=== PATIENT | female | born 1980 | race Two or more races ===

== ENCOUNTER 2016-03-30 11:10 | Emergency (ER) | payer SELFPAY ==
--- NOTE | 2016-03-30 11:18 | ER Document Report ---
ED Medical Screen (RME) - General Stated Complaint: POSSIBLE DOG BITE Notes: 36 yo female bitten by neighbor's dog. went into yard to get her dog. bitten on left calf. Unsure of tetnus status. Dog's shots are UTD. No chronic health problems - Related Data Allergies/Adverse Reactions: No Known Allergies Allergy (Unverified 08/24/10 07:53) Past Medical History Neurological Medical History: Denies: Hx Seizures Past Surgical History: Reports: Hx Tubal Ligation. Denies: Hx Hysterectomy Physical Exam - Vital signs Vitals: Temp Pulse Resp BP Pulse Ox 98.0 F 75 16 121/71 98 03/30/16 11:13 03/30/16 11:13 03/30/16 11:13 03/30/16 11:13 03/30/16 11:13 Course - Vital Signs Vital signs: Temp Pulse Resp BP Pulse Ox 98.0 F 75 16 121/71 98 03/30/16 11:13 03/30/16 11:13 03/30/16 11:13 03/30/16 11:13 03/30/16 11:13
[2016-03-30] MEDS ORDERED: LIDOCAINE 1% INJ-PF (10 MG/ML) 30 ML SDV INJ ONE (11:29)
[2016-03-30] MEDS ORDERED: DIPH/PERTUSS(ACELL)/TETANUS VAC/PF 0.5 ML SYR (>=10YO) IM ONE (11:47)
--- NOTE | 2016-03-30 12:36 | ER Document Report ---
ED Animal Bite - General Chief Complaint: Dog Bite Stated Complaint: POSSIBLE DOG BITE Notes: Patient was bitten on the lower back part of her left leg by a neighbors dog. That dog is up-to-date on all of its shots. Patient went into the neighbors yard to get her dog who had strayed into that yard. The neighbors dog came out and went after this patient biting her on her lower posterior leg. No other injuries. TRAVEL OUTSIDE OF THE [place] IN LAST 30 DAYS: No - Related Data Allergies/Adverse Reactions: No Known Allergies Allergy (Verified 03/30/16 11:16) Past Medical History - Social History Smoking Status: Current Every Day Smoker Chew tobacco use (# tins/day): No Frequency of alcohol use: None Drug Abuse: None Family History: Reviewed & Not Pertinent Patient has suicidal ideation: No Patient has homicidal ideation: No Past Surgical History: Reports: Hx Tubal Ligation - Immunizations Hx Diphtheria, Pertussis, Tetanus Vaccination: Yes Review of Systems - Review of Systems Constitutional: denies: Fever Cardiovascular: denies: Chest pain Respiratory: denies: Cough, Short of breath, Wheezing Gastrointestinal: denies: Abdominal pain, Diarrhea, Vomiting Physical Exam - Vital signs Vitals: Temp Pulse Resp BP Pulse Ox 98.0 F 75 16 121/71 98 03/30/16 11:13 03/30/16 11:13 03/30/16 11:13 03/30/16 11:13 03/30/16 11:13 Interpretation: Normal - Notes Notes: PHYSICAL EXAMINATION: GENERAL: Well-appearing, in no acute distress. HEAD: Atraumatic, normocephalic. BACK: No tenderness throughout entire back. EXTREMITIES: Patient has several abrasions and 1 rather deep and long laceration about 3 cm in length in the region above the posterior left ankle, overlying the region of the Achilles tendon. She has several linear superficial abrasions rather parallel to this one deep laceration. She has excellent sensation and circulation into the distal left foot and toes. NEUROLOGICAL: Normal speech, normal gait except for a slight limp because of pain. Normal sensory, motor, and reflex exams. Awake, alert, and oriented x3. Cranial nerves normal. SKIN: Warm, dry, no rashes. Course - Vital Signs Vital signs: Temp Pulse Resp BP Pulse Ox 98.5 F 62 14 110/57 L 98 03/30/16 12:51 03/30/16 12:51 03/30/16 12:51 03/30/16 12:51 03/30/16 12:51 Procedures - Laceration/Wound Repair Left Lower Leg Wound length (cm): 3 Wound's Depth, Shape: Into muscle - By digital exploration, it feels as if the dog bite just approaches or slightly enters the surface of the muscle, although I can't visualize that area. It is a very insignificant interruption in the external layer of tissue over the muscle., Linear, Contused tissue. No: Flap, Stellate Laceration pre-procedure: Sterile drapes applied Anesthetic type: 1% Lidocaine Volume Anesthetic (mLs): 4 Wound explored: Clean, No foreign body removed Irrigated w/ Saline (mLs): 1,000 Wound Debrided: none Wound Repaired With: Sutures Suture Size/Type: 5:0, Ethilon Number of Sutures: 2 Layer Closure?: No Post-procedure NV exam normal: Yes Complications: No Adult Front & Back picture: 1 - 3 cm laceration, deep into the subcutaneous tissue, to the surface of the muscle but barely entering the latter, if at all. Adjacent superficial abrasions. Closed very loosely with just 2 sutures of 5-0 nylon. Discharge - Discharge Clinical Impression: Dog bite of left lower leg Qualifiers: Encounter type: initial encounter Qualified Code(s): S81.852A - Open bite, left lower leg, initial encounter Laceration of left lower leg Qualifiers: Encounter type: initial encounter Qualified Code(s): S81.812A - Laceration without foreign body, left lower leg, initial encounter Condition: Stable Disposition: HOME, SELF-CARE Additional Instructions: Animal Bites Animal bites are often heavily contaminated with bacteria. In spite of thorough cleansing and proper treatment, these wounds frequently become infected. Bite wounds of the hands are especially prone to complications. Bites are dressed, if possible. Large wounds may require suturing after internal cleansing. Because of infection risk, some large wounds must remain unstitched. Your doctor is trained to advise you on the best treatment for your bite. Call the doctor at once if the wound becomes red, swollen, warm, increasingly painful, or if it begins to drain. Danger signs also include red streaks up the involved extremity, swollen glands in the groin or under the arm , or fever and chills. The risk of rabies from domestic animals is very low. Bats, sick animals, and wild animals may expose you to rabies. The physician, or the health department, will inform you if you will need to receive the rabies vaccine. LACERATION CARE: Your laceration has been sutured to keep the skin edges aligned during healing. The time of suture removal depends on the nature and location of your cut. Please follow the care instructions the doctor has outlined for you and return for further care, according to the schedule you've been given. Keep the wound and dressing clean. Unless you were told otherwise, you may shower daily, blotting the wound dry with a clean, unused towel. At other times, If the dressing gets wet or blood soaked, remove it and blot the wound dry, then reapply a new dressing. Unless you were instructed otherwise, dressings should be changed at least daily. If any signs of infection occur (swelling, redness, drainage, increasing tenderness, red streaks, tender lumps in the armpit or groin above the laceration, or fever), see the doctor immediately. SOAP CLEANSING: Gently wash the wound daily using a mild soap (like Ivory, Phisoderm, Neutrogena). Use warm water, rubbing gently until all debris, ooze, and crusting have been washed from the wound. Allow to dry briefly (about 10 minutes) after cleaning. Repeat this cleansing at least three times a day for the first two days and then once or twice a day. ANTIBIOTIC OINTMENT PROTECTION: Your wounds are such that dressing them is not practical or optional. After cleansing, you should apply a thin coating of antibiotic ointment ( Bacitracin, not Neosporin) to the wounds at least three times daily. This lessens infection risk, and may decrease the amount of scarring. Use a q-tip or dull butter knife, not your finger, to apply this ointment. Any debris or ooze which builds up in the ointment should be gently rubbed off with a sterile gauze pad. Harder crusting may need to be gently scrubbed off with a clean wash cloth with soap and warm water, perhaps applying a warm, wet wash cloth to the wound for ten minutes first. Development of redness, severe itching, or blistering may mean allergy to the ointment. See the doctor. TETANUS IMMUNIZATION GIVEN: You have been given an immunization against tetanus. Please record this in your records. In general, a booster is needed only once every 10 years. The tetanus shot protects against tetanus or "lockjaw," which is a complication of certain wound infections (the tetanus shot cannot protect against the actual infection). The immunization site may become warm and red due to local reaction. If this occurs, apply warm compresses and take aspirin or ibuprofen to reduce inflammation and discomfort. Return for evaluation if the reaction becomes severe. PROPHYLACTIC ANTIBIOTIC: The antibiotics which have been prescribed are designed to decrease the risk of infection. Only certain types of wounds benefit from this -- the typical cut, scrape, or burn DOES NOT require antibiotics. Of course, infection can still occur despite the use of prophylactic antibiotics. Your wound will heal with less chance of an infectious complication if you take the medication as directed. The most important dose is the FIRST dose, so don't delay filling the prescription! Augmentin Augmentin is a mixture of amoxicillin and clavulanate. Amoxicillin is a member of the penicillin family. It covers the germs likely to cause ear, bronchial, and urinary infections better than plain penicillin. The addition of clavulanate allows it to cover staph infections of the skin, as well as resistant cases of ear and sinus infections. Your physician has chosen Augmentin for you because of the special nature of your situation. Augmentin is best taken with meals. Nausea after taking the medication is rare, but can occur. Diarrhea can occur, particularly in small children. Vaginal yeast infections, and oral thrush in infants are also common. Contact your physician if these problems occur. Allergy to penicillins is common. If you have had an allergic reaction to any drug of the penicillin family, you should never take any other penicillin. Notify your doctor at once if you develop hives, shortness of breath, swelling, or faintness. ORAL NARCOTIC MEDICATION: You have been given a prescription for pain control. This medication is a narcotic. It's best taken with food, as nausea can result if taken on an empty stomach. Don't operate machinery or drive within six hours of taking this medication. Do not combine this medicine with alcohol, or with any medication which can cause sedation (such as cold tablets or sleeping pills) unless you get permission from the physician. Narcotics tend to cause constipation. If possible, drink plenty of fluids and eat a diet high in fiber and fruits. FOLLOW-UP CARE: Your sutures should be removed in 7- 8 days days. To facilitate a timely removal of your sutures, you may return to the Emergency Department at [facility]. You do not need to call for an appointment, but the best time to come in for suture removal is early in the morning. If you have been referred to another physician for follow-up care, call that physicians office for an appointment as you were instructed. If you experience a significant change in your laceration, or if you are concerned there may be an infection (swelling, redness, drainage, increasing tenderness, red streaks, tender lumps in the armpit or groin above the laceration, or fever) , return to the Emergency Department immediately re-evaluation. Prescriptions: Amox Tr/Potassium Clavulanate [Augmentin 875-125 Tablet] 1 tab PO BID 5 Days Fluconazole [Diflucan] 200 mg PO PRN PRN #1 tablet PRN Reason: Oxycodone HCl/Acetaminophen [Percocet 5-325 mg Tablet] 1 - 2 tab PO Q4H PRN #15 tablet PRN Reason: Forms: Return to Work
[2016-03-30 12:57] VITALS: BP 110/57
== END 2016-03-30 12:51 | disposition home or self-care (01) ==
LOC: ER 11:10
PROC: 0HQLXZZ Repair Left Lower Leg Skin, External Approach (ICD-10-PCS; principal; 2016-03-30)
DX: S81.852A Open bite, left lower leg, initial encounter (principal); S81.812A Laceration without foreign body, left lower leg, initial encounter; W54.0XXA Bitten by dog, initial encounter; F17.210 Nicotine dependence, cigarettes, uncomplicated
CPT/HCPCS: 99283

== ENCOUNTER 2019-09-22 11:21 | Emergency (ER) | payer SELFPAY ==
[2019-09-22 12:09] LABS: ABSOLUTE EOSINOPHILS # (AUTO) 0.1 10^3/uL (0.0-0.6); ABSOLUTE LYMPHOCYTES (AUTO) 2.2 10^3/uL (0.5-4.7); ABSOLUTE MONOCYTES (AUTO) 0.5 10^3/uL (0.1-1.4); ABSOLUTE NEUT (AUTO) 4.7 10^3/uL (1.7-8.2); BASOPHILS % (AUTO) 0.5 % (0-2); HEMATOCRIT 39.1 % (36.0-47.0); HEMOGLOBIN 13.3 g/dL (12.0-15.5); LYMPHOCYTES % (AUTO) 29.5 % (13-45); MEAN CORPUSCULAR HEMOGLOBIN 30.3 pg (27.0-33.4); MEAN CORPUSCULAR HGB CONC 33.9 g/dL (32.0-36.0); MEAN CORPUSCULAR VOLUME 89 fl (80-97); MONOCYTES % (AUTO) 6.7 % (3-13); PLATELET COUNT 352 10^3/uL (150-450); RED BLOOD COUNT 4.38 10^6/uL (3.72-5.28); RED CELL DISTRIBUTION WIDTH 14.4 % (11.5-14.0); SEGMENTED NEUTROPHILS % (AUTO) 62.3 % (42-78); TOTAL CELLS COUNTED % (AUTO) 100 %; WHITE BLOOD COUNT 7.5 10^3/uL (4.0-10.5)
--- NOTE | 2019-09-22 12:18 | RADIOLOGY REPORT (SQ) ---
EXAM DESCRIPTION: CHEST SINGLE VIEW IMAGES COMPLETED DATE/TIME: 09/22/2019 11:51 am REASON FOR STUDY: bed 38 short of breath COMPARISON: 09/27/2011 TECHNIQUE: Single frontal radiographic view of the chest acquired. NUMBER OF VIEWS: One view. LIMITATIONS: None. FINDINGS: LUNGS AND PLEURA: No pneumothorax. No consolidation or pleural effusion. MEDIASTINUM AND HILAR STRUCTURES: Stable. HEART AND VASCULAR STRUCTURES: Stable. BONES: No acute findings. HARDWARE: None in the chest. OTHER: No other significant finding. IMPRESSION: NO ACUTE FINDINGS. TECHNICAL DOCUMENTATION: JOB ID: [id number] [place]-72 2010 [employer]- All Rights Reserved Reading location - IP/workstation name: [employer]
[2019-09-22 12:22] LABS: ALBUMIN 4.8 g/dL (3.5-5.0); ALKALINE PHOSPHATASE 69 U/L (38-126); ANION GAP 7 (5-19); ASPARTATE AMINO TRANSFERASE 23 U/L (14-36); BILIRUBIN,TOTAL 0.5 mg/dL (0.2-1.3); BLOOD UREA NITROGEN 8 mg/dL (7-20); CALCIUM 9.6 mg/dL (8.4-10.2); CARBON DIOXIDE 24 mmol/L (22-30); CHLORIDE 107 mmol/L (98-107); GLUCOSE 92 mg/dL (75-110); POTASSIUM 4.1 mmol/L (3.6-5.0)
--- NOTE | 2019-09-22 13:06 | ER Document Report ---
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 Patient does report some chest ti ghtness. She is a smoker. She has noticed herself wheezing. She also had a headache initially. ROS: See HPI - all other systems were reviewed and are otherwise negative Constitutional: no fever Eyes: no drainage, no blurred vision ENT: no runny nose, no sore throat Cardiovascular: + chest pain Resp: + SOB, + cough GI: no vomiting, no diarrhea, no abdominal pain, positive nausea : no dysuria Integumentary: no rash Allergy: no hives Musculoskeletal: no extremity pain or swelling Neurological: no numbness/tingling, no weakness MEDICATIONS: I agree with the patient medications as charted by the RN. ALLERGIES: I agree with the allergies as charted by the RN. PAST MEDICAL HISTORY/PAST SURGICAL HISTORY: Reviewed and agree as charted by RN. SOCIAL HISTORY: Reviewed and agree as charted by RN. FAMILY HISTORY: No significant familial comorbid conditions directly related to patient complaint EXAM: Reviewed vital signs as charted by RN. CONSTITUTIONAL: Alert and oriented and responds appropriately to questions. Well-appearing; well-nourished HEAD: Normocephalic; atraumatic EYES: PERRL; Conjunctivae clear, sclerae non-icteric ENT: normal nose; no rhinorrhea; moist mucous membranes; pharynx without lesions noted, no uvula edema or deviation, no tonsillar hypertrophy, phonation normal NECK: Supple without meningismus; non-tender; no cervical lymphadenopathy, no masses CARD: RRR; no murmurs, no clicks, no rubs, no gallops; symmetric distal pulses RESP: Normal chest excursion without splinting or tachypnea; breath sounds with very slight expiratory wheeze noted, no rhonchi, no rales, pulse oximetry 98% on room air not hypoxic ABD/GI: Normal bowel sounds; non-distended; soft, non-tender, no rebound, no guarding; no palpable organomegaly or masses. BACK: The back appears normal and is non-tender to palpation, there is no CVA tenderness EXT: Normal ROM in all joints; non-tender to palpation; no cyanosis, no effusions, no edema SKIN: Normal color for age and race; warm; dry; good turgor; no acute lesions noted NEURO: Moves all extremities equally; Motor and sensory function intact PSYCH: The patient's mood and manner are appropriate. Grooming and personal hygi nereyda are appropriate. MDM: 39-year-old female who presented with upper respiratory symptoms initially with a positive COVID exposure from a coworker. Patient initially had headache then some chest tightness, wheezing cough and nausea. She is otherwise reasonably healthy. She does smoke. She was slightly wheezing on my exam. We have COVID tested the patient she will be a person under investigation. Her screening cardiac labs were negative. Her chest x-ray was negative for acute findings. EKG was read as atrial fibrillation with a rate of 55 but on my review she appears to be in a sinus bradycardia with a rate of 55 not atrial fibrillation. There are P waves noted on her EKG. Reviewed by ER attending. TRAVEL OUTSIDE OF THE [place] IN LAST 30 DAYS: No - Related Data Allergies/Adverse Reactions: No Known Allergies Allergy (Verified 03/30/16 11:16) Past Medical History - Social History Smoking Status: Current Every Day Smoker Family History: Reviewed & Not Pertinent Neurological Medical History: Denies: Hx Seizures Renal/ Medical History: Denies: Hx Peritoneal Dialysis Past Surgical History: Reports: Hx Tubal Ligation. Denies: Hx Hysterectomy - Immunizations Hx Diphtheria, Pertussis, Tetanus Vaccination: Yes Physical Exam - Vital signs Vitals: Temp Pulse Resp BP Pulse Ox 97.9 F 62 24 H 134/83 H 99 09/22/19 11:29 09/22/19 11:29 09/22/19 11:29 09/22/19 11:29 09/22/19 11:29 Course - Vital Signs Vital signs: Temp Pulse Resp BP Pulse Ox 97.9 F 62 24 H 134/83 H 99 09/22/19 11:29 09/22/19 11:29 09/22/19 11:29 09/22/19 11:29 09/22/19 11:29 - Laboratory Result Diagrams: 09/22/19 11:50 09/22/19 11:50 Laboratory results interpreted by me: 09/22/19 11:50 RDW 14.4 H Discharge - Discharge Clinical Impression: Person under investigation for COVID-19, Nausea Dyspnea Qualifiers: Dyspnea type: unspecified Qualified Code(s): R06.00 - Dyspnea, unspecified Condition: Stable Disposition: HOME, SELF-CARE Additional Instructions: Use the albuterol inhaler to help with coughing and shortness of breath. Your chest x-ray, lab work today did not show acute emergent abnormalities. You are considered a person under investigation at this time self quarantine at home for the next week or until you have a negative COVID study. Return for any concerns Prescriptions: Albuterol Sulfate [Proair HFA Inhalation Aerosol 8.5 gm MDI] 2 puff IH Q4H PRN #1 mdi PRN Reason: Ondansetron [Zofran Odt 4 mg Tablet] 1 - 2 tab PO Q4H PRN #15 tab.rapdis PRN Reason: For Nausea/Vomiting Forms: Return to Work Referrals: STIVEN SHEPARD MD [COMMUNITY BASED STAFF] - Follow up as needed
[2019-09-22] MEDS ORDERED: IPRATROPIUM/ALBUTEROL 0.5-2.5 MG/3 ML AMPUL NEB ONE (13:23)
[2019-09-22 13:58] VITALS: BP 140/62
--- NOTE | 2019-09-23 10:40 | EKG REPORT ---
SEVERITY:- ABNORMAL ECG - SINUS DESI 55 BORDERLINE RIGHT AXIS DEVIATION : Confirmed on behalf of: Stas Jennings MD 23-Sep-2019 10:39:53
== END 2019-09-22 14:03 | disposition home or self-care (01) ==
LOC: ER 11:21
DX: R06.00 Dyspnea, unspecified (principal); R11.0 Nausea; R06.02 Shortness of breath; M79.10 Myalgia, unspecified site; R05 Cough; R07.9 Chest pain, unspecified; R51 Headache; F17.200 Nicotine dependence, unspecified, uncomplicated; Z20.828 Contact with and (suspected) exposure to other viral communicable diseases
CPT/HCPCS: 93005; 94640; 99284; 36415; 85025; 87635; 80053; 84484; 71045; 93010; C9803